=== PATIENT | female | born 1965 | race Caucasian/White ===

== ENCOUNTER 2017-11-25 07:46 | Day surgery (SDC) | payer OTHER ==
[2017-11-25] MEDS ORDERED: LIDOCAINE 4% SOLUTION 50 ML BTL (09:48)
[2017-11-25] MEDS ORDERED: MIDAZOLAM 1 MG/ML 2 ML INJ ×2 (10:32)
[2017-11-25] MEDS ORDERED: FENTAnyl 50 MCG/ML VIAL (10:32)
== END 2017-11-25 16:43 | disposition home or self-care (01) ==
LOC: GIL 07:46
DX: K29.30 Chronic superficial gastritis without bleeding (principal); K31.7 Polyp of stomach and duodenum; K21.9 Gastro-esophageal reflux disease without esophagitis; I10 Essential (primary) hypertension; Z86.73 Personal history of transient ischemic attack (TIA), and cerebral infarction without residual deficits
CPT/HCPCS: 43239; 88305; 88312